=== PATIENT | male | born 2000 | race Two or more races ===

== ENCOUNTER 2019-06-17 14:22 | Emergency (ER) | payer MEDICAID ==
[~2019-06-17] VITALS: Ht 172.7 cm; Wt 78.0 kg
[2019-06-17 14:35] VITALS: BP 123/75
[2019-06-17] MEDS ORDERED: ALBU6.7H9 INH (15:04)
[2019-06-17] MEDS ORDERED: BENZ-38 PO (15:04)
== END 2019-06-17 15:28 | disposition home or self-care (01) ==
LOC: ER 14:25
DX: J22 Unspecified acute lower respiratory infection (principal); Z79.899 Other long term (current) drug therapy
CPT/HCPCS: 99283

== ENCOUNTER 2019-06-23 14:14 | Emergency (ER) | payer MEDICAID ==
[~2019-06-23] VITALS: Ht 172.7 cm; Wt 78.0 kg
[~2019-06-23 14:14] MED LIST: ALBU6.7H9 INH; BENZ-38 PO
[2019-06-23 14:56] LABS: BASOPHILS % (AUTO) 0.3 % (0-1); EOSINOPHILS # (AUTO) 0.4 X10'3 (0-0.9); EOSINOPHILS % (AUTO) 6.1 % (0-6); HEMATOCRIT 24.8 % (35.0-45.0); HEMOGLOBIN 7.6 g/dl (12.0-16.0); LYMPHOCYTES # (AUTO) 1.1 X10'3 (1.1-4.8); LYMPHOCYTES % (AUTO) 16.2 % (21-51); MEAN CORPUSCULAR HEMOGLOBIN 16.6 PG (27.0-31.0); MEAN CORPUSCULAR HGB CONC 30.7 g/dL (33.0-36.5); MEAN PLATELET VOLUME 8.7 FL (7.4-10.4); MONOCYTES # (AUTO) 0.4 X10'3 (0-0.9); MONOCYTES % (AUTO) 6.5 % (2-12); NEUTROPHILS # (AUTO) 4.8 X10'3 (1.8-7.7); NEUTROPHILS % (AUTO) 70.9 % (42-75); PLATELET COUNT 435 X10'3 (140-440); RED BLOOD COUNT 4.59 X10'6 (4.20-5.60); RED CELL DISTRIBUTION WIDTH 19.8 % (11.5-14.5); WHITE BLOOD COUNT 6.8 X10'3 (4.5-11.0)
[2019-06-23 15:04] LABS: PARTIAL THROMBOPLASTIN TIME 27 SECONDS (22-32)
[2019-06-23 15:05] LABS: ALANINE AMINOTRANSFERASE 40 U/L (12-78); ALBUMIN 3.2 G/DL (3.4-5.0); ALBUMIN/GLOBULIN RATIO 0.6 (1.1-1.5); ALKALINE PHOSPHATASE 116 IU/L (46-116); ANION GAP 9 (8-16); ASPARTATE AMINO TRANSFERASE 33 U/L (10-37); BILIRUBIN,TOTAL 0.3 MG/DL (0.1-1.0); BLOOD UREA NITROGEN 8 MG/DL (7-18); BUN/CREATININE RATIO 13.1 (6.6-38.0); CHLORIDE 100 MMOL/L (99-107); CREATININE 0.61 MG/DL (0.40-0.90); GLUCOSE 97 MG/DL (70-104); POTASSIUM 3.9 MMOL/L (3.5-5.1); SODIUM 136 MMOL/L (135-145); TOTAL CARBON DIOXIDE 27.2 MMOL/L (24-32); TOTAL PROTEIN 8.4 G/DL (6.4-8.2); eGFR > 90 ML/MIN
[2019-06-23 15:16] LABS: ANISOCYTOSIS 2+; HYPOCHROMASIA 1+; MICROCYTOSIS 3+; PLATELET ESTIMATE NORMAL
[2019-06-23 15:17] LABS: LARGE PLATELETS FEW; POIKILOCYTOSIS FEW; POLYCHROMASIA 1+
[2019-06-23] MEDS ORDERED: normal saline 1000ML IV soln IVB ONE ×2 (15:35→17:55)
[2019-06-23] MEDS ORDERED: azithromycin/NS 500mg/250ml 250 ML IV ONE (15:40)
[2019-06-23] MEDS ORDERED: CefTRIAXone/D5W-Rocephin 1gm 50 ML IV ONE (15:40)
[2019-06-23 15:57] LABS: CLARITY,URINE SLIGHTLY CLOUDY (Clear); COLOR,URINE YELLOW (Yellow); GLUCOSE, URINE NEGATIVE (Neg); KETONES,URINE NEGATIVE (Neg); LEUKOCYTE ESTERASE ,URINE SMALL (Neg); NITRITES, URINE NEGATIVE (Neg); OCCULT BLOOD,URINE NEGATIVE (Neg); PROTEIN,URINE NEGATIVE (Neg); UROBILINOGEN,URINE 0.2 E.U/dL (0.2-1.0)
[2019-06-23 15:58] LABS: UA COLLECTION TYPE CLN CATCH MIDSTREAM
[2019-06-23 16:09] LABS: SQUAMOUS EPITHELIAL CELL,UR MANY /LPF (FEW)
[2019-06-23 16:10] LABS: MUCUS STRANDS FEW /LPF (Neg)
[2019-06-23 16:12] LABS: BACTERIA,URINE 2+ /HPF (Neg); RBC,URINE 0-2 /HPF (0-2)
[2019-06-23] MEDS ORDERED: ketorolac tromethamine 15mg/ml inj. IV ONE (16:25)
[2019-06-23] MEDS ORDERED: acetaminophen 325mg tablet PO ONE (16:25)
[2019-06-23] MEDS ORDERED: albuterol 2.5 MG/3 ML nebule NEB ONE (16:35)
--- NOTE | 2019-06-23 16:36 | NUR ---
Spoke with ANTONETTE Douglass about the pt's report of SOB and difficulty breathing. Order for neb treatment obtained. RT is being paged at this time.
[2019-06-23] MEDS ORDERED: ROBDML PO (18:38)
[2019-06-23] MEDS ORDERED: AZIT-63 PO (18:38)
[2019-06-23 19:04] VITALS: BP 111/77
== END 2019-06-23 18:50 | disposition home or self-care (01) ==
LOC: ER 14:15 → EDSEX 14:15 → ER 18:50
DX: J18.9 Pneumonia, unspecified organism (principal); Z79.2 Long term (current) use of antibiotics
CPT/HCPCS: 36415; 71045; 80053; 81001; 83605; 84145; 85025; 85610; 85730; 87040; 87502; 87503; 93005; 94640; 94760; 96365; 96367; 96375; 99284; J0456; J0696; J1885; J7030